=== PATIENT | male | born 1980 | race Caucasian/White ===

== ENCOUNTER 2016-10-16 00:27 | Emergency (ER) | payer OTHER ==
[~2016-10-16 00:27] MED LIST: BACITRACIN30 GM TOP; BACLOFEN PO; BACTRIM DS TABL1 TAB PO; CELEXA PO; CLEOCIN PO; CLEOCIN150 M2 PO; DESYREL50 MG PO; DICLOFENAC PO; DIFLUCAN PO; DOXYCYCLINE HY100 M1 PO; FIORICET 50-321 EACH PO; FLEXERIL10 MG PO; HYDROCODON-ACE1 EACH PO; IBUPROFEN PO; KEFLEX PO; LORTAB 7.5-5001 TAB PO; MEDROL DOSEPAK4 MG PO; MEDROL PO; NAPROSYN500 MG PO; NEURONTIN PO; NO MEDICATIONS; NORCO 5/325 TAB1 TAB PO; NORFLEX100 M1 PO; PAXIL; PHENERGAN PO; PREDNISONE PO; PROZAC40 MG PO; RITALIN PO; ROBAXIN500 MG PO; SKELAXIN PO; TYLENOL #3 PO; ULTRAM PO; VICODIN 5/1 TAB 5/50 PO; VOLTAREN50 MG PO; VOLTAREN75 MG PO
[2016-10-16 02:54] LABS: BASOPHIL# 0.1 X10e3 (0-0.3); BASOPHIL% 0.5 % (0-2.5); EOSINOPHIL# 0.6 X10e3 (0-0.7); EOSINOPHIL% 5.4 % (0.0-7.0); HEMATOCRIT 42.8 % (38.0-50.0); HEMOGLOBIN 14.5 gm/dL (13.0-16.0); LYMPHOCYTE# 2.9 X10e3 (1.0-3.5); LYMPHOCYTE% 27.8 % (17.0-45.0); MEAN CELL VOLUME 93.9 FL (83-96); MEAN CORPUSCULAR HEMOGLOBIN 31.8 PG (28-34); MEAN CORPUSCULAR HGB CONC 33.8 g/dL (30-36); MEAN PLATELET VOLUME 9.9 FL (6.5-11.5); MONOCYTE# 0.9 X10e3 (0-1.0); MONOCYTE% 8.4 % (3.0-12.0); NEUTROPHIL% 57.9 % (40-75); PLATELET COUNT 198 X10e3 (140-420); RED BLOOD COUNT 4.56 X10e (3.90-5.60); RED CELL DISTRIBUTION WIDTH 13.1 % (11.0-15.5); WHITE BLOOD COUNT 10.4 X10e3 (4.0-10.5)
[2016-10-16 03:16] LABS: DIFF IND NO
[2016-10-16 03:32] LABS: ALBUMIN SERUM 3.6 g/dL (3.5-5.0); BILIRUBIN,TOTAL 0.8 mg/dL (0.2-2.0); BUN/CREATININE RATIO 18.33; CALCIUM SERUM 8.4 mg/dL (8.4-10.2); CREATININE SERUM 0.6 mg/dL (0.6-1.4); GLOM FILT RATE Estimated 130.3 mL/min (>60); POTASSIUM 3.5 mmol/L (3.5-5.1); PROTEIN TOTAL SERUM 6.9 g/dL (6.0-8.3)
[2016-10-16 03:41] LABS: BILIRUBIN, DIRECT 0.1 mg/dL (0.0-0.2); BILIRUBIN,INDIRECT 0.7 mg/dL (0.0-0.9)
== END 2016-10-16 04:16 | disposition home or self-care (01) ==
LOC: CED 00:27
PROVIDERS: Physician Assistant
DX: H66.002 Acute suppurative otitis media without spontaneous rupture of ear drum, left ear (principal); F17.210 Nicotine dependence, cigarettes, uncomplicated; Z88.0 Allergy status to penicillin; Z91.013 Allergy to seafood
CPT/HCPCS: 36415; 80048; 80076; 85025; 99283

== ENCOUNTER 2016-10-21 01:04 | Emergency (ER) | payer OTHER ==
[2016-10-21 02:41] LABS: BASOPHIL% 0.5 % (0-2.5); DIFF IND NO; EOSINOPHIL# 0.5 X10e3 (0-0.7); EOSINOPHIL% 6.6 % (0.0-7.0); HEMATOCRIT 44.6 % (38.0-50.0); LYMPHOCYTE# 2.4 X10e3 (1.0-3.5); LYMPHOCYTE% 29.4 % (17.0-45.0); MEAN CELL VOLUME 94.4 FL (83-96); MEAN CORPUSCULAR HEMOGLOBIN 31.8 PG (28-34); MEAN CORPUSCULAR HGB CONC 33.7 g/dL (30-36); MEAN PLATELET VOLUME 10.6 FL (6.5-11.5); MONOCYTE# 1.1 X10e3 (0-1.0); MONOCYTE% 13.7 % (3.0-12.0); NEUTROPHIL% 49.8 % (40-75); PLATELET COUNT 190 X10e3 (140-420); RED BLOOD COUNT 4.73 X10e (3.90-5.60)
[2016-10-21 03:09] LABS: BUN/CREATININE RATIO 11.66; CALCIUM SERUM 8.7 mg/dL (8.4-10.2); CREATININE SERUM 0.6 mg/dL (0.6-1.4); GLOM FILT RATE Estimated 130.3 mL/min (>60); POTASSIUM 3.6 mmol/L (3.5-5.1)
[2016-10-21 05:52] LABS: CSF APPEARANCE CLEAR (CLEAR); CSF RBC 12 CMM (0); CSF TUBE NUMBER 1; CSF WBC 0 CMM (0-8); CSF XANTHACHROMIC NO
[2016-10-21 06:11] LABS: GLUCOSE-CSF 60 mg/dL (50-80); PROTEIN-CSF 25 mg/dL (15-45)
[2016-10-21 06:45] LABS: CSF APPEARANCE CLEAR (CLEAR); CSF NEUTROPHIL 0 %; CSF RBC 0 CMM (0); CSF TUBE NUMBER 4; CSF WBC 2 CMM (0-8); CSF XANTHACHROMIC NO
[2016-10-21 06:47] LABS: CSF LYMPHOCYTE 94 %; CSF MONOCYTE 6 %
== END 2016-10-21 07:33 | disposition home or self-care (01) ==
LOC: CED 01:04
PROVIDERS: Emergency Medicine
DX: G44.209 Tension-type headache, unspecified, not intractable (principal); F31.9 Bipolar disorder, unspecified; F17.210 Nicotine dependence, cigarettes, uncomplicated; Z88.0 Allergy status to penicillin; Z91.013 Allergy to seafood
CPT/HCPCS: 80048; 82945; 84157; 85025; 87070; 87205; 89051; 96361; 96374; 99283; J1885